=== PATIENT | male | born 1965 | race Caucasian/White ===

== ENCOUNTER → 2019-03-24 | Emergency (ER) | payer SELFPAY ==
[~2019-03-24] VITALS: Ht 182.9 cm; Wt 77.0 kg
[~2019-03-24] MED LIST: EPINEPHRINE 0.1MG/ML (1:10,000) 10ML SYR ONE; ETOMIDATE 2MG/ML 10ML VIAL IV ONE; IOHEXOL-350 100 ML BOTTLE ONE; MIDAZOLAM HCL 50 MG in DEXTROSE 5% WATER 40 ML IV ONE; MORPHINE SULFATE 4 MG/ML CPJ (NOT FOR IM USE) IV STA; ONDANSETRON HCL 4MG/2ML INJ IV STA; SODIUM BICARBONATE 50 MEQ in DEXTROSE 5% WATER 1,000 ML IV SCH; SODIUM BICARBONATE 8.4% 1 MEQ/ML 50ML SYR IV ONE; SODIUM BICARBONATE 8.4% MEQ/ML 50ML VIAL IV ONE; SODIUM CHLORIDE 0.9% 1,000 ML IV ONE; SODIUM CHLORIDE 0.9% 10ML VIAL ONE; SUCCINYLCHOLINE CHLORIDE 200MG/10ML IV ONE; VECURONIUM BROMIDE 10 MG/VIAL IV ONE
[2019-03-24 01:34] LABS: BASOPHILS % 0.8 % (0.0-2.0); EOSINOPHILS % 5.3 % (0.0-5.0); HEMATOCRIT. 46.4 % (42.0-52.0); HEMOGLOBIN. 15.3 g/dL (14.0-18.0); LYMPHOCYTES % 57.6 % (20.0-50.0); MEAN CORPUSCULAR HEMOGLOBIN 30.6 pg (28.0-32.0); MEAN CORPUSCULAR VOLUME 92.4 fL (80.0-94.0); MEAN PLATELET VOLUME 7.2 fl (7.4-10.4); NEUTROPHILS % 32.3 % (40.0-76.0); PLATELET 232 x1000/uL (130-400); RED BLOOD CELL COUNT 5.02 mill/uL (4.7-6.1); RED CELL DISTRIBUTION WIDTH 13.7 % (11.6-14.6)
[2019-03-24 01:46] LABS: INR 1.1; PARTIAL THROMBOPLASTIN TIME 28.2 sec (23.4-31.0); PROTHROMBIN TIME 11.3 sec (9.6-11.0)
[2019-03-24 01:48] LABS: CHLORIDE 109 mEq/L (98-107)
[2019-03-24 01:53] LABS: ETHANOL BLOOD < 10 mg/dL
[2019-03-24 03:14] LABS: BG CARBOXYHEMOGLOBIN 0.7 % (0.5-1.5); BG DEOXYHEMOGLOBIN 74.4 % (0.0-5.0); BG FRACTION INSPIRED OXYGEN 100; BG HCO3 ACT 31.9 mmol/L (22.0-26.0); BG METHEMOGLOBIN 0.7 % (0.0-1.5); BG OXYGEN SATURATION 24.5 % (92.0-98.5); BG OXYHEMOGLOBIN 24.2 % (94.0-97.0); BG PCO2 71.2 mmHg (35.0-45.0); BG PH 7.269 (7.350-7.450); BG PO2 < 30.3 mmHg (75.0-100.0); BG SAMPLE SITE RIGHT FEMORAL; BG TOTAL HEMOGLOBIN 12.7 g/dL (12.0-18.0); BG VENT MODE VENT - A/C; BG VENT RATE 16 set
[2019-03-24 03:28] VITALS: BP 55/35
== END ==
LOC: ER 00:56
DX: I71.00 Dissection of unspecified site of aorta (principal); J45.909 Unspecified asthma, uncomplicated
CPT/HCPCS: 31500; 36415; 36600; 71045; 71275; 74174; 80053; 80320; 82375; 82805; 83605; 83690; 83880; 84484; 85025; 85610; 85730; 86850; 86900; 86901; 92950; 94002; 96365; 96375; 99285; J0330; J2250; J3490; J7030; J7060; J7070; Q9967; Z7610; G0480